=== PATIENT | male | born 1965 | race African-American/Black ===

== ENCOUNTER 2021-04-25 21:35 | Emergency (ER) | payer SELFPAY ==
[~2021-04-25] VITALS: Ht 175.3 cm; Wt 95.3 kg
[2021-04-25 22:39] VITALS: BP 150/87
[2021-04-25] MEDS ORDERED: HYDROCODONE/APAP 5/325MG TABLET PO ONE (23:00)
[2021-04-25] MEDS ORDERED: IBUPROFEN 600 MG TABLET PO ONE (23:00)
[2021-04-25] MEDS ORDERED: CEFTRIAXONE 1 G VIAL IM ONE (23:00)
[2021-04-25] MEDS ORDERED: SULFAMETH/TRIMETH 800/160 MG 1 UDTAB TABLET PO ONE (23:00)
--- NOTE | 2021-04-25 23:05 | NUR ---
[employer]INE [employer] AT PT'S BEDSIDE
[2021-04-25] MEDS ORDERED: HYDROCODONE/APAP 5/325MG TABLET ONE (23:31)
[2021-04-25] MEDS ORDERED: IBUPROFEN 600 MG TABLET ONE (23:31)
[2021-04-25] MEDS ORDERED: CEFTRIAXONE 1 G VIAL ONE (23:31)
[2021-04-25] MEDS ORDERED: SULFAMETH/TRIMETH 800/160 MG 1 UDTAB TABLET ONE (23:32)
--- NOTE | 2021-04-26 00:07 | NUR ---
CALLED YULIET REGARDING CHEST XRAY
[2021-04-26] MEDS ORDERED: IBUP-1957 PO (00:30)
[2021-04-26] MEDS ORDERED: CEPH500C2 PO (00:30)
[2021-04-26] MEDS ORDERED: SULF1TAB48 PO (00:30)
[2021-04-26] MEDS ORDERED: HYDR-3972 PO (00:30)
--- NOTE | 2021-04-26 00:38 | NUR ---
Patient discharged to home in stable condition. Written and verbal after care instructions given. Patient verbalizes understanding of instruction. Pt ambulatory with a steady gait
== END 2021-04-26 00:39 | disposition home or self-care (01) ==
LOC: ER 21:39
DX: L03.114 Cellulitis of left upper limb (principal); F12.90 Cannabis use, unspecified, uncomplicated; Z98.890 Other specified postprocedural states; Z60.2 Problems related to living alone
CPT/HCPCS: 73080; 96372; 99284; J0696